=== PATIENT | male | born 1940 | race Caucasian/White ===

== ENCOUNTER 2016-05-02 23:55 | Emergency (ER) | payer OTHER ==
[~2016-05-02] VITALS: Ht 172.7 cm; Wt 76.2 kg
[2016-05-03 00:06] VITALS: BP 115/52; PULSE 90; RESP 18; TEMP 97.9; O2SAT 98
[2016-05-03] MEDS ORDERED: cefTRIAXone 1 GM VIAL IM ONE (01:15)
[2016-05-03] MEDS ORDERED: LIDOCAINE 1%, 20 ML MDV 20 ML ONE (01:20)
[2016-05-03 01:40] VITALS: BP 112/56; PULSE 88; RESP 18; TEMP 97.9; O2SAT 98
== END 2016-05-03 01:40 | disposition home or self-care (01) ==
LOC: SED 23:55
DX: E11.621 Type 2 diabetes mellitus with foot ulcer (principal); L03.115 Cellulitis of right lower limb; I10 Essential (primary) hypertension; Z89.619 Acquired absence of unspecified leg above knee
CPT/HCPCS: 96372; 99283; J0696; J2001

== ENCOUNTER 2017-05-16 08:43 | Emergency (ER) | payer OTHER ==
[~2017-05-16] VITALS: Ht 172.7 cm; Wt 75.7 kg
[2017-05-16 09:07] VITALS: BP_SYST 154
[2017-05-16] MEDS ORDERED: LEVOFLOXACIN 500 MG/D5W 100 ML IV ONE (09:30)
[2017-05-16] MEDS ORDERED: ALBUTEROL SULFATE 0.083% 2.5 MG/3 ML VIAL.NEB INH ONE (09:30)
[2017-05-16 09:53] LABS: BASOPHILS % (AUTO) 0.3 % (0.0-2.0); EOSINOPHILS # (AUTO) 0.1 K/uL (0.0-0.4); EOSINOPHILS % (AUTO) 1.1 % (0.0-4.0); HEMATOCRIT 33.4 % (36-54); HEMOGLOBIN 11.3 g/dL (14.0-18.0); LYMPHOCYTES # (AUTO) 1.5 K/uL (1.0-5.5); LYMPHOCYTES % (AUTO) 18.8 % (20.5-51.5); MEAN CORPUSCULAR HEMOGLOBIN 30 pg (27-31); MEAN CORPUSCULAR HGB CONC 34 % (32-36); MEAN CORPUSCULAR VOLUME 90 fL (79.0-98.0); MONOCYTES # (AUTO) 0.8 K/uL (0.0-1.0); MONOCYTES % (AUTO) 9.4 % (1.7-9.3); NEUTROPHILS # (AUTO) 5.8 K/uL (1.8-7.7); NEUTROPHILS % (AUTO) 70.4 % (40.0-70.0); PLATELET COUNT (AUTO) 227 K/uL (130-430); RED BLOOD CELL COUNT(AUTO) 3.72 MIL/uL (4.2-6.2); RED CELL DISTRIBUTION WIDTH 12.1 % (9.0-15.0); WHITE BLOOD COUNT (AUTO) 8.2 K/uL (4.8-10.8)
[2017-05-16] MEDS ORDERED: KETOROLAC TROMETHAMINE 30 MG VIAL IVP ONE (10:00)
[2017-05-16] MEDS ORDERED: ACETAMINOPHEN 500 MG TABLET PO ONE (10:00)
[2017-05-16 10:05] LABS: PROTHROMBIN TIME 9.8 SECS (9.5-12.5)
[2017-05-16 10:08] LABS: ANION GAP 8 (5-15); CHLORIDE 101 mmol/L (98-107); CREATININE 2.21 mg/dL (0.55-1.30); GLUCOSE 274 mg/dL (70-99); SODIUM SERUM 137 mmol/L (136-145); UREA NITROGEN, BLOOD 38 mg/dL (8-21)
[2017-05-16 10:13] LABS: ALANINE AMINOTRANSFERASE 19 U/L (12-78); ALBUMIN 3.7 g/dL (3.4-4.8); ASPARTATE AMINOTRANSFERASE 17 U/L (10-37)
[2017-05-16] MEDS ORDERED: ONDANSETRON HCL 4 MG/2 ML VIAL ONE (10:24)
[2017-05-16] MEDS ORDERED: ONDANSETRON HCL 4 MG/2 ML VIAL IVP ONE (10:30)
[2017-05-16 11:16] LABS: BILIRUBIN,URINE NEGATIVE (NEGATIVE); CLARITY/URINE CLEAR (CLEAR); COLOR,URINE YELLOW (YELLOW); GLUCOSE,URINE 3+ (NEGATIVE); KETONES,URINE 1+ (NEGATIVE); LEUKOCYTE ESTERASE ,URINE 1+ (NEGATIVE); NITRITE, URINE NEGATIVE (NEGATIVE); PROTEIN URINE 2+ (NEGATIVE); UROBILINOGEN,URINE 0.2 (0.2-1.0)
[2017-05-16 11:25] LABS: BLOOD, URINE TRACE (NEGATIVE)
[2017-05-16 11:27] LABS: BACTERIA,URINE FEW /HPF (None Seen)
[2017-05-16 11:28] LABS: FINE GRANULAR CASTS,URINE 0-10 /LPF (None Seen)
[2017-05-16 11:32] VITALS: BP_SYST 134
== END 2017-05-16 11:29 | disposition home or self-care (01) ==
LOC: SED 08:43
DX: J40 Bronchitis, not specified as acute or chronic (principal); E11.40 Type 2 diabetes mellitus with diabetic neuropathy, unspecified; I10 Essential (primary) hypertension; Z89.421 Acquired absence of other right toe(s); Z96.652 Presence of left artificial knee joint
CPT/HCPCS: 36415; 71045; 80053; 81000; 83605; 83880; 84484; 85025; 85610; 86710; 87040; 87086; 93005; 94640; 96365; 96375; 99285; J1885; J1956; J2405

== ENCOUNTER 2017-06-08 19:37 | Emergency (ER) | payer OTHER ==
[~2017-06-08] VITALS: Ht 172.7 cm; Wt 75.7 kg
[2017-06-08 19:37] VITALS: BP_SYST 158
[2017-06-08] MEDS ORDERED: NACL 0.9% 1,000 ML IV ONE (19:45)
[2017-06-08] MEDS ORDERED: INSULIN REGULAR, HUMAN 10 UNITS/0.1 ML INJ SUBCUT ONE (20:00)
[2017-06-08 20:26] LABS: BASOPHILS % (AUTO) 0.5 % (0.0-2.0); EOSINOPHILS # (AUTO) 0.2 K/uL (0.0-0.4); EOSINOPHILS % (AUTO) 4.8 % (0.0-4.0); HEMATOCRIT 33.3 % (36-54); HEMOGLOBIN 11.4 g/dL (14.0-18.0); LYMPHOCYTES # (AUTO) 1.1 K/uL (1.0-5.5); LYMPHOCYTES % (AUTO) 24.1 % (20.5-51.5); MEAN CORPUSCULAR HEMOGLOBIN 30 pg (27-31); MEAN CORPUSCULAR HGB CONC 34 % (32-36); MEAN CORPUSCULAR VOLUME 89 fL (79.0-98.0); MONOCYTES # (AUTO) 0.5 K/uL (0.0-1.0); MONOCYTES % (AUTO) 10.6 % (1.7-9.3); NEUTROPHILS # (AUTO) 2.9 K/uL (1.8-7.7); PLATELET COUNT (AUTO) 270 K/uL (130-430); RED BLOOD CELL COUNT(AUTO) 3.74 MIL/uL (4.2-6.2); RED CELL DISTRIBUTION WIDTH 11.8 % (9.0-15.0); WHITE BLOOD COUNT (AUTO) 4.7 K/uL (4.8-10.8)
[2017-06-08 20:31] LABS: ACETONE, SERUM NEGATIVE (NEGATIVE)
[2017-06-08 20:33] LABS: ANION GAP 7 (5-15); CALCIUM 9.1 mg/dL (8.4-11.0); CHLORIDE 93 mmol/L (98-107); CREATININE 2.27 mg/dL (0.55-1.30); POTASSIUM 4.3 mmol/L (3.5-5.1); SODIUM SERUM 127 mmol/L (136-145); UREA NITROGEN, BLOOD 43 mg/dL (8-21)
[2017-06-08] MEDS ORDERED: LOSA25TA3 PO (20:39)
[2017-06-08] MEDS ORDERED: TAMS-11 PO (20:39)
[2017-06-08] MEDS ORDERED: CLOP75TA2 PO (20:39)
[2017-06-08] MEDS ORDERED: GABA-531 PO (20:39)
[2017-06-08] MEDS ORDERED: INSU300I SQ (20:41)
[2017-06-08 20:42] LABS: ALANINE AMINOTRANSFERASE 14 U/L (12-78); ALBUMIN 3.7 g/dL (3.4-4.8); ASPARTATE AMINOTRANSFERASE 10 U/L (10-37); LIPASE 394 U/L (73-393); TOTAL BILIRUBIN 0.4 mg/dL (0.0-1.0)
[2017-06-08 20:53] LABS: GLUCOSE 641 mg/dL (70-99)
[2017-06-08] MEDS ORDERED: INSULIN REGULAR, HUMAN 10 UNITS/0.1 ML INJ IVP ONE (22:00)
[2017-06-08 23:20] VITALS: BP_SYST 127
== END 2017-06-08 23:20 | disposition home or self-care (01) ==
LOC: SED 19:37
DX: E11.65 Type 2 diabetes mellitus with hyperglycemia (principal); E87.1 Hypo-osmolality and hyponatremia; I10 Essential (primary) hypertension; Z89.421 Acquired absence of other right toe(s); Z96.652 Presence of left artificial knee joint; Z79.4 Long term (current) use of insulin
CPT/HCPCS: 36415; 80053; 82009; 82962; 83690; 83880; 84484; 85025; 96361; 96372; 96374; 99284; J1815; J7030

== ENCOUNTER 2018-09-19 01:39 | Emergency (ER) | payer OTHER ==
[~2018-09-19] VITALS: Ht 172.7 cm; Wt 79.4 kg
[~2018-09-19 01:39] MED LIST: CLOP75TA2 PO; GABA-531 PO; INSU300I SQ; LOSA25TA3 PO; TAMS-11 PO
[2018-09-19 01:50] VITALS: BP_SYST 136
[2018-09-19 03:25] VITALS: BP_SYST 132
== END 2018-09-19 03:25 | disposition home or self-care (01) ==
LOC: SED 01:39
DX: S91.204A Unspecified open wound of right lesser toe(s) with damage to nail, initial encounter (principal); L03.031 Cellulitis of right toe; E11.9 Type 2 diabetes mellitus without complications; I10 Essential (primary) hypertension; Z79.899 Other long term (current) drug therapy; X58.XXXA Exposure to other specified factors, initial encounter; Y93.89 Activity, other specified; Y92.89 Other specified places as the place of occurrence of the external cause; Y99.8 Other external cause status
CPT/HCPCS: 99283